=== PATIENT | male | born 1960 | race Caucasian/White ===

== ENCOUNTER 2017-03-30 15:48 | Emergency (ER) | payer SELFPAY ==
[~2017-03-30] VITALS: Ht 180.3 cm; Wt 55.0 kg
[2017-03-30 15:56] VITALS: BP 97/76; PULSE 90; RESP 15; TEMP 99; O2SAT 96
--- NOTE | 2017-03-30 16:25 | PD ---
HPI Chief Complaint: Injury Time Seen by Provider: 16:10 Travel History International Travel<30 days: No Contact w/Intl Traveler<30days: No Traveled to known affect area: No History of Present Illness HPI 57-year-old male presents to the emergency room for evaluation of left knee pain for the past 2 days. Patient states yesterday while walking, he twisted his knee wrong and developed excruciating, sudden left-sided knee pain. Pain was so severe, he fell to the ground. It took him 35 minutes to be able to get back up. Pain is localized to the medial aspect without radiation. Exacerbated with range of motion. Minimal pain at rest. States throughout the day, it seemed to calm down. In the morning when he woke up, it wasn't as severe, but as today progressed the same excruciating pain returned. He called his primary care physician who recommended he come to the emergency room. He took Motrin yesterday for pain. Patient has history of right knee effusion/ pain but states the left knee is far more painful, limiting his activities of daily living. Patient has history of chronic neuropathy but denies any worsening paresthesias. PFSH Past Medical History Bipolar Disorder: Yes COPD: Yes Coronary Artery Disease: Yes Diabetes: Yes Patient Takes Glucophage: No Neurologic: Yes (neuropathy) Tetanus Vaccination: < 5 Years Influenza Vaccination: No Past Surgical History Abdominal Surgery: Yes (hernia) Coronary Artery Bypass Graft: Yes Social History Alcohol Use: No Tobacco Use: Yes Substance Use: No Allergies-Medications (Allergen,Severity, Reaction): Coded Allergies: Penicillin (Verified Allergy, Unknown, 03/30/17) Reported Meds & Prescriptions Reported Meds & Active Scripts Active Reported Novolin R Inj (Insulin Human Regular) 1,000 Unit/10 Ml Vial 1 Units SQ ONCE Ventolin Hfa 18 GM Inh (Albuterol Sulfate) 90 Mcg/Act Aer 2 Puff INH Q4-6H PRN Atorvastatin (Atorvastatin Calcium) 20 Mg Tab 20 Mg PO HS Metoprolol Tartrate 50 Mg Tab 50 Mg PO DAILY Seroquel (Quetiapine Fumarate) 100 Mg Tab 100 Mg PO DAILY Lamictal (Lamotrigine) 100 Mg Tab 100 Mg PO DAILY Trazodone (Trazodone HCl) 50 Mg Tab 50 Mg PO HS Ropinirole 5 Mg Tab 5 Mg PO HS Clopidogrel (Clopidogrel Bisulfate) 75 Mg Tab 75 Mg PO DAILY Amlodipine (Amlodipine Besylate) 10 Mg Tab 10 Mg PO DAILY Review of Systems Except as stated in HPI: all other systems reviewed are Neg Physical Exam Narrative GENERAL: Well-nourished, well-developed male in no acute distress. Afebrile. SKIN: Focused skin assessment warm/dry. No erythema or ecchymosis. HEAD: Normocephalic. EYES: No scleral icterus. No injection or drainage. NECK: Supple, trachea midline. No JVD or lymphadenopathy. CARDIOVASCULAR: Regular rate and rhythm without murmurs, gallops, or rubs. RESPIRATORY: Breath sounds equal bilaterally. No accessory muscle use. EXTREMITY: Right knee tender to palpation medially. No pain with passive range of motion. Extreme pain with active range of motion. Patient is able to flex to 90 and straighten 180. No joint edema or effusion/injury. 2+ dorsalis pedis pulse. Negative anterior and posterior drawer test. Pain with valgus stress. Data Data Last Documented VS Vital Signs Date Time Temp Pulse Resp B/P Pulse Ox O2 Delivery O2 Flow Rate FiO2 03/30/17 15:56 99.0 90 15 97/76 96 Orders Knee, Complete (4vws) (03/30/17 16:05) Splint Or Brace Apply/Monitor (03/30/17 16:34) Crutches (03/30/17 16:34) MDM Medical Decision Making Medical Screen Exam Complete: Yes Emergency Medical Condition: Yes Medical Record Reviewed: Yes Differential Diagnosis Spasm, sprain, strain, internal derangement Narrative Course 57-year-old male presents to the emergency room for evaluation of left medial knee pain after twisting injury yesterday. Patient reports severe pain, worse with range of motion. Left lower extremity is neurovascularly intact with 2+ dorsalis pedis pulse. Physical exam reveals no edema, erythema, ecchymosis, or effusion of the left knee. Patient has full range of motion, no concern for septic joint. There is tenderness to palpation to the medial aspect. Extreme pain with valgus stress. Patient likely has internal derangement that will need to be evaluated by MRI. Patient scheduled MRI while in the ED. X-ray shows calcified bodies in the knee joint, patient given copy. He was told to return for worsening symptoms. He understands and agrees to plan. Diagnosis Primary Impression: Left medial knee pain Referrals: Orthopedist Primary Care Physician Patient Instructions: General Instructions, Knee Pain (ED) Additional Instructions: Rest and drink plenty of fluids. Use splint and crutches as needed for pain. Take ibuprofen with food as directed, as needed for pain. Apply ice to the affected area for 20 minutes at a time, as needed for pain and swelling. Follow-up with a primary care physician for outpatient MRI if symptoms persist. Return to the emergency room for worsening symptoms. Med/Other Pt SpecificInfo: Prescription(s) given Disposition: 01 DISCHARGE HOME Condition: Stable Bernadette Otero Mar 30, 2017 16:24
[2017-03-30] MEDS ORDERED: NOVORP2 SQ (16:42)
[2017-03-30] MEDS ORDERED: SERO100T PO (16:42)
[2017-03-30] MEDS ORDERED: ATOR20TA15 PO (16:42)
[2017-03-30] MEDS ORDERED: AMLO10TA2 PO (16:42)
[2017-03-30] MEDS ORDERED: CLOP75TA PO (16:42)
[2017-03-30] MEDS ORDERED: VENTAER INH (16:42)
[2017-03-30] MEDS ORDERED: ROPI5TAB PO (16:42)
[2017-03-30] MEDS ORDERED: METO50TA PO (16:42)
[2017-03-30] MEDS ORDERED: LAMO100 PO (16:42)
[2017-03-30] MEDS ORDERED: TRAZ50TA12 PO (16:42)
--- NOTE | 2017-03-30 16:55 | RADRPT ---
EXAM DATE/TIME: 03/30/2017 16:15 [facility] COMPARISON: No previous studies available for comparison. INDICATIONS : Left medial knee pain. No known injury. MEDICAL HISTORY : None. SURGICAL HISTORY : None. ENCOUNTER: Initial ACUITY: 2 days PAIN SCORE: 10/10 LOCATION: Left medial knee FINDINGS: There is a calcified loose body in the knee joint posteriorly. No acute fracture or dislocation. No b desiree destructive changes. CONCLUSION: 1. Calcified loose bodies in the knee joint. No acute bony abnormality. Ross Jason MD on March 30, 2017 at 16:50 Board Certified Radiologist. This report was verified electronically.
[2017-03-30] MEDS ORDERED: HYDR-3533 PO ×2 (17:23→17:24)
== END 2017-03-30 17:36 | disposition home or self-care (01) ==
LOC: PHEFT 15:48
DX: M25.562 Pain in left knee (principal); E11.9 Type 2 diabetes mellitus without complications; Z72.0 Tobacco use; Z79.4 Long term (current) use of insulin; Z86.59 Personal history of other mental and behavioral disorders; Z86.79 Personal history of other diseases of the circulatory system; Z86.69 Personal history of other diseases of the nervous system and sense organs; X50.1XXA Overexertion from prolonged static or awkward postures, initial encounter; Y93.01 Activity, walking, marching and hiking
CPT/HCPCS: 73564; 99283; E0113; L1830

== ENCOUNTER 2017-08-16 10:10 | Emergency (ER) | payer OTHER ==
[~2017-08-16] VITALS: Ht 180.3 cm; Wt 91.0 kg
[~2017-08-16 10:10] MED LIST: AMLO10TA2 PO; ATOR20TA15 PO; CLOP75TA PO; HYDR-3533 PO; LAMO100 PO; METO50TA PO; NOVORP2 SQ; ROPI5TAB PO; SERO100T PO; TRAZ50TA12 PO; VENTAER INH
[2017-08-16 10:12] VITALS: BP 137/61; PULSE 87; RESP 20; TEMP 98.5; O2SAT 98
[2017-08-16] MEDS ORDERED: SODIUM CHLORIDE 0.9% FLUSH 10 ML FLUSH IV FLUSH PRN (10:30)
[2017-08-16] MEDS ORDERED: IPRASOL INH (10:35)
[2017-08-16] MEDS ORDERED: OXYC15TA PO (10:35)
[2017-08-16 11:10] LABS: AUTOMATED NEUTROPHIL # 7.6 TH/MM3 (1.8-7.7); BASOPHIL % 0.3 % (0.0-2.0); EOSINOPHIL % 0.4 % (0.0-4.0); HEMATOCRIT 41.8 % (39.0-51.0); HEMO FLAGS DIFF FINAL; LYMPH % 7.4 % (9.0-44.0); LYMPHOCYTE # 0.6 TH/MM3 (1.0-4.8); MEAN CELL VOLUME 87.8 FL (80.0-100.0); MEAN CORPUSCULAR HGB CONC 34.2 % (32.0-36.0); MONO % 0.8 % (0.0-8.0); NEUT % 91.1 % (16.0-70.0); PLATELET COUNT 164 TH/MM3 (150-450); RED BLOOD COUNT 4.76 MIL/MM3 (4.50-5.90); RED CELL DISTRIBUTION WIDTH 15.1 % (11.6-17.2); WHITE BLOOD COUNT 8.3 TH/MM3 (4.0-11.0)
[2017-08-16] MEDS ORDERED: ONDANSETRON HCL 4 MG/2 ML VIAL IV PUSH ONE (11:15)
[2017-08-16] MEDS ORDERED: HYDROmorphone HCL PF 1 MG/ML VIAL IV PUSH ONE (11:15)
[2017-08-16] MEDS ORDERED: SODIUM CHLORID 0.9% 500 ML INJ 500 ML IV ONE (11:15)
[2017-08-16 11:29] LABS: ALT (GPT) 35 U/L (12-78); ANION GAP 10 MEQ/L (5-15); AST (GOT) 19 U/L (15-37); BLOOD UREA NITROGEN 13 MG/DL (7-18); CHLORIDE 103 MEQ/L (98-107); GLOMERULAR FILTRATION RATE 69 ML/MIN (>89); POTASSIUM 4.5 MEQ/L (3.5-5.1); SODIUM (NA) 135 MEQ/L (136-145)
--- NOTE | 2017-08-16 11:29 | PD ---
HPI Chief Complaint: Flank/Kidney Pain Time Seen by Provider: 11:08 Travel History International Travel<30 days: No Contact w/Intl Traveler<30days: No Traveled to known affect area: No History of Present Illness HPI 57-year-old male patient with history of CAD, status post CABG, carotid endarterectomy, hypertension, seen at [facility] last week for back pains , had a negative MRI. He presents to the ER today because he states that he had been having left flank pains for the last week and then felt like something popped on the left lower quadrant area today, states is currently a pain of a 9- 1/2 out of 10. He denies any nausea, vomiting, fevers, urinary symptoms, or any other symptoms. He states that he had seen [facility] today and did not feel that they were addressing his concerns, came here for further evaluation. He had taken his own hydrocodone without much relief. Modifying Factors: None Associated Signs & Symptoms: Left flank pains and left lower quadrant abdominal pains Risk Factors: History of chronic back pains PFSH Past Medical History Bipolar Disorder: Yes Cardiac Catheterization: Yes (triple bypass ) COPD: Yes Coronary Artery Disease: Yes Diabetes: Yes Patient Takes Glucophage: No Musculoskeletal: Yes (chonic back pain ) Neurologic: Yes (neuropathy) Past Surgical History Abdominal Surgery: Yes (hernia) Coronary Artery Bypass Graft: Yes Social History Alcohol Use: No Tobacco Use: Yes (1/2 pack a day ) Substance Use: No Allergies-Medications (Allergen,Severity, Reaction): Coded Allergies: penicillin G (Unverified Allergy, Unknown, 08/16/17) Reported Meds & Prescriptions Reported Meds & Active Scripts Active Reported Oxycodone (Oxycodone HCl) 15 Mg Tab 15 Mg PO Q6H PRN Duoneb (Ipratropium-Albuterol Neb) 0.5-2.5 Mg/3 Ml Neb 1 Nebule INH DAILY Ventolin Hfa 18 GM Inh (Albuterol Sulfate) 90 Mcg/Act Aer 2 Puff INH Q4-6H PRN Atorvastatin (Atorvastatin Calcium) 20 Mg Tab 20 Mg PO HS Metoprolol Tartrate 50 Mg Tab 50 Mg PO DAILY Seroquel (Quetiapine Fumarate) 100 Mg Tab 100 Mg PO DAILY Lamictal (Lamotrigine) 100 Mg Tab 100 Mg PO DAILY Trazodone (Trazodone HCl) 50 Mg Tab 50 Mg PO HS Ropinirole 5 Mg Tab 5 Mg PO HS Clopidogrel (Clopidogrel Bisulfate) 75 Mg Tab 75 Mg PO DAILY Amlodipine (Amlodipine Besylate) 10 Mg Tab 10 Mg PO DAILY Review of Systems Except as stated in HPI: all other systems reviewed are Neg Physical Exam Narrative GENERAL: Well-developed middle age white male patient currently in moderate distress. Awake and oriented 3. SKIN: Focused skin assessment warm/dry. HEAD: Atraumatic. Normocephalic. EYES: Pupils equal and round. No scleral icterus. No injection or drainage. ENT: No nasal bleeding or discharge. Mucous membranes pink and moist. NECK: Trachea midline. No JVD. CARDIOVASCULAR: Regular rate and rhythm. No murmur appreciated. RESPIRATORY: No accessory muscle use. Clear to auscultation. Breath sounds equal bilaterally. GASTROINTESTINAL: Abdomen soft, obese, left lower quadrant tenderness without guarding or rebound, nondistended. Hepatic and splenic margins not palpable. Notable reducible ventral hernia. BACK: Left CVA tenderness. No rash. No point tenderness on palpation of the spine. MUSCULOSKELETAL: No obvious deformities. No clubbing. No cyanosis. No edema. NEUROLOGICAL: Awake and alert. No obvious cranial nerve deficits. Motor grossly within normal limits. Normal speech. PSYCHIATRIC: Appropriate mood and affect; insight and judgment normal. Data Data Last Documented VS Vital Signs Date Time Temp Pulse Resp B/P (MAP) Pulse Ox O2 Delivery O2 Flow Rate FiO2 08/16/17 14:05 08/16/17 13:02 75 16 97 Room Air 08/16/17 10:12 98.5 Orders Orders Complete Blood Count With Diff (08/16/17 10:27) Comprehensive Metabolic Panel (08/16/17 10:27) Lipase (08/16/17 10:27) Urinalysis - C+S If Indicated (08/16/17 10:27) Iv Access Insert/Monitor (08/16/17 10:27) Ecg Monitoring (08/16/17 10:27) Oximetry (08/16/17 10:27) Sodium Chloride 0.9% Flush (Ns Flush) (08/16/17 10:30) Cta Thor Abd Aorta W Iv C W3d (08/16/17 ) Sodium Chlorid 0.9% 500 Ml Inj (Ns 500 M (08/16/17 11:15) Hydromorphone Pf Inj (Dilaudid Pf Inj) (08/16/17 11:15) Ondansetron Inj (Zofran Inj) (08/16/17 11:15) Iohexol 350 Inj (Omnipaque 350 Inj) (08/16/17 12:44) Ed Discharge Order (08/16/17 13:37) Labs Laboratory Tests Test 08/16/17 10:49 08/16/17 11:25 White Blood Count 8.3 TH/MM3 Red Blood Count 4.76 MIL/MM3 Hemoglobin 14.3 GM/DL Hematocrit 41.8 % Mean Corpuscular Volume 87.8 FL Mean Corpuscular Hemoglobin 30.0 PG Mean Corpuscular Hemoglobin Concent 34.2 % Red Cell Distribution Width 15.1 % Platelet Count 164 TH/MM3 Mean Platelet Volume 7.8 FL Neutrophils (%) (Auto) 91.1 % Lymphocytes (%) (Auto) 7.4 % Monocytes (%) (Auto) 0.8 % Eosinophils (%) (Auto) 0.4 % Basophils (%) (Auto) 0.3 % Neutrophils # (Auto) 7.6 TH/MM3 Lymphocytes # (Auto) 0.6 TH/MM3 Monocytes # (Auto) 0.1 TH/MM3 Eosinophils # (Auto) 0.0 TH/MM3 Basophils # (Auto) 0.0 TH/MM3 CBC Comment DIFF FINAL Differential Comment Blood Urea Nitrogen 13 MG/DL Creatinine 1.11 MG/DL Random Glucose 178 MG/DL Total Protein 8.0 GM/DL Albumin 4.6 GM/DL Calcium Level 9.1 MG/DL Alkaline Phosphatase 134 U/L Aspartate Amino Transf (AST/SGOT) 19 U/L Alanine Aminotransferase (ALT/SGPT) 35 U/L Total Bilirubin 0.3 MG/DL Sodium Level 135 MEQ/L Potassium Level 4.5 MEQ/L Chloride Level 103 MEQ/L Carbon Dioxide Level 22.0 MEQ/L Anion Gap 10 MEQ/L Estimat Glomerular Filtration Rate 69 ML/MIN Lipase 54 U/L Urine Color YELLOW Urine Turbidity CLEAR Urine pH 5.0 Urine Specific Sandwich 1.013 Urine Protein TRACE mg/dL Urine Glucose (UA) NEG mg/dL Urine Ketones NEG mg/dL Urine Occult Blood TRACE Urine Nitrite NEG Urine Bilirubin NEG Urine Urobilinogen LESS THAN 2.0 MG/DL Urine Leukocyte Esterase NEG Urine RBC 1 /hpf Urine WBC LESS THAN 1 /hpf Microscopic Urinalysis Comment CULT NOT INDICATED MDM Medical Decision Making Medical Screen Exam Complete: Yes Emergency Medical Condition: Yes Medical Record Reviewed: Yes Interpretation(s) Laboratory Tests Test 08/16/17 10:49 08/16/17 11:25 Neutrophils (%) (Auto) 91.1 % (16.0-70.0) Lymphocytes (%) (Auto) 7.4 % (9.0-44.0) Lymphocytes # (Auto) 0.6 TH/MM3 (1.0-4.8) Random Glucose 178 MG/DL (74-106) Alkaline Phosphatase 134 U/L (45-117) Sodium Level 135 MEQ/L (136-145) Estimat Glomerular Filtration Rate 69 ML/MIN (>89) Lipase 54 U/L (73-393) Urine Occult Blood TRACE (NEG) Last 24 hours Impressions Aorta CTA 08/16/17 0000 Signed Impressions: Service Date/Time: , August 16, 2017 12:21 - CONCLUSION: No specific explanation for patient's pain. There are no acute vascular findings identified. High-grade left subclavian artery stenosis. High-grade right renal artery stenosis. Forrest Siddiqui MD Differential Diagnosis Musculoskeletal versus radiculopathy versus renal colic versus AAA versus aortic dissection versus diverticulitis versus diverticulosis Narrative Course Lab work did not show any signs of UTI. Lab work was otherwise unremarkable. CAT scan of the abdominal, thoracic, aorta, did not show any signs of acute intra-abdominal processes or any signs of aortic dissection or other acute processes. Patient had a recent MRI done at [facility] which apparently was unremarkable. At this point, I do not see any signs of focal neurological deficits. He has no saddle anesthesia. He is ambulatory in the ER. Vital signs are stable. My plan would be to release him and have him continue symptomatic relief or pain at home and follow-up to primary care doctor. Return for any worsening in symptoms as needed. The plan has been discussed with him he states understanding. Diagnosis Primary Impression: Lt flank pain Disposition: 01 DISCHARGE HOME Condition: Stable SoonTrey rich MD Aug 16, 2017 11:29
[2017-08-16 11:31] LABS: ALKALINE PHOSPHATASE 134 U/L (45-117); TOTAL BILIRUBIN ADULT 0.3 MG/DL (0.2-1.0)
[2017-08-16 12:06] LABS: BLOOD, URINE TRACE (NEG); GLUCOSE,URINE NEG (NEG); KETONE, URINE NEG (NEG); NITRITE,URINE NEG (NEG); URINE COLOR YELLOW (YELLW/STRAW)
[2017-08-16 12:13] LABS: COMMENT (UR) CULT NOT INDICATED; CULTURE IF INDICATED CULT NOT INDICATED
[2017-08-16] MEDS ORDERED: IOHEXOL 350 MG/ML 10 ML VIAL (for RAD DIAG) IVCONTRAST ONE (12:44)
[2017-08-16 13:02] VITALS: BP 167/84; O2SAT 97
--- NOTE | 2017-08-16 13:17 | RADRPT ---
EXAM DATE/TIME: 08/16/2017 12:21 [facility] COMPARISON: No previous studies available for comparison. INDICATIONS : Left back pain. IV CONTRAST: 96 cc Omnipaque 350 (iohexol) IV RADIATION DOSE: 20.53 CTDIvol (mGy) MEDICAL HISTORY : Cardiovascular disease. Chronic obstructive pulmonary disease. Diabetes SURGICAL HISTORY : CABG ENCOUNTER: Initial ACUITY: 4 - 6 days PAIN SCALE: 7/10 LOCATION: Left flank TECHNIQUE: Volumetric scanning was performed using a multi-row detector CT scanner. The data was post processed with a variety of visualization algorithms including full volume maximum intensity projection, multi -planar sliding thin slab reformation, curved planar reformation, and surface rendering techniques. Using automated exposure control and adjustment of the mA and/or kV according to patient size, radiat ion dose was kept as low as reasonably achievable to obtain optimal diagnostic quality images. DICOM format image data is available electronically for review and comparison. FINDINGS: LUNGS: There is a small area of pleural-based consolidation along the posterolateral pleural surface of the right lower lobe. Minimal atelectasis is present at the lateral left base. MEDIASTINUM: No abnormally enlarged lymph nodes by CT criteria. No axillary or hilar abnormalities are identified. ABDOMEN: The liver and spleen are free of focal defects. The gallbladder and pancreas demonstrate no abnormali ty. The adrenal glands are normal. The kidneys demonstrate no evidence of solid renal mass or hydrone phrosis. No free fluid or abdominal masses are identified. No para-aortic adenopathy is seen. PELVIS: No evidence of free fluid or pelvic mass. No abnormally enlarged inguinal or retroperitoneal lymph no cherry are present. The bladder is unremarkable. THORACIC AORTA: The thoracic aorta is normal in caliber. No evidence of dissection or significant stenosis. Looking a t the arch branch vessels, there is high-grade stenosis involving the left subclavian artery between its origin and the left vertebral artery take off. The visualized common carotid vessels appear [employer]. ABDOMINAL AORTA: Abdominal aorta is normal in caliber with patchy moderate atherosclerotic change and intimal calcific ation noted. There is some distal plaquing with ulceration involving the lateral left side of the inf rarenal aorta. There is high-grade ostial stenosis of the right renal artery. PELVIC VESSELS: There is high grade calcific stenosis at the origin of the right hypogastric. Iliacs are otherwise sa tisfactory in appearance. CONCLUSION: No specific explanation for patient's pain. There are no acute vascular findings identified. High-gra de left subclavian artery stenosis. High-grade right renal artery stenosis. Forrest Siddiqui MD on August 16, 2017 at 13:03 Board Certified Radiologist. This report was verified electronically.
== END 2017-08-16 14:08 | disposition home or self-care (01) ==
LOC: NEPE 10:10
DX: R10.9 Unspecified abdominal pain (principal); I10 Essential (primary) hypertension; I25.10 Atherosclerotic heart disease of native coronary artery without angina pectoris; E11.9 Type 2 diabetes mellitus without complications; J44.9 Chronic obstructive pulmonary disease, unspecified; Z72.0 Tobacco use; Z95.1 Presence of aortocoronary bypass graft
CPT/HCPCS: 71275; 74174; 80053; 81001; 83690; 85025; 96374; 96375; 99285; J1170; J2405; J7040; Q9967